=== PATIENT | female | born 1990 | race American Indian/Alaskan Native ===

== ENCOUNTER 2017-02-28 05:56 | Day surgery (SDC) | payer MEDICAID ==
[2017-02-28 06:14] VITALS: BMI 37.0
[2017-02-28 06:37] LABS: BASO % 0.2 % (0.0-2.0); EOS # 0.1 K/uL (0.0-0.7); EOS % 1.3 % (0.0-4.0); HEMATOCRIT 34.3 % (34.0-47.0); LYMPH # 2.1 K/uL (1.0-4.3); LYMPH % 32.9 % (20.0-40.0); MEAN CELL VOLUME 86.9 fL (81.0-99.0); MEAN CORPUSCULAR HEMOGLOBIN 30.2 pg (27.0-31.0); MEAN CORPUSCULAR HGB CONC 34.7 g/dL (33.0-37.0); MEAN PLATELET VOLUME 9.7 fL (7.2-11.7); MONO # 0.7 K/uL (0.0-0.8); MONO % 10.6 % (0.0-10.0); RED CELL DISTRIBUTION WIDTH 14.6 % (11.5-14.5); WHITE BLOOD COUNT 6.5 K/uL (4.8-10.8)
--- NOTE | 2017-02-28 07:47 | CP.SDSHP ---
Same Day Surgery H & P - History Proposed Procedure: [employer] Cervical Cerclage Pre-Op Diagnosis: 26yo with Previous deliveries X4, Cervical insufficiency - Previous Medical/Surgical History Previous Surgical History: Tooth Extraction - Allergies Allergies: Allergies No Known Allergies Allergy (Verified 02/28/17 06:14) - Current Medications Current Medications: Prnatal vitamins - Physical Exam General Appearance: Well Vital Signs: Vital Signs 02/28/17 07:07 Temperature 97.6 F Pulse Rate 85 Respiratory 18 Rate Blood Pressure 126/77 O2 Sat by Pulse 98 Oximetry Mental Status: Alert & Oriented x3 Neuro: WNL Heart: WNL Lungs: WNL GI: WNL - {Optional Preform as Required} Breast: WNL Abdomen: WNL 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 Evaluated Today:Candidate for Anesthesia & Procedure: Yes - Date & Time Date: 02/28/17 Time: 07:50 Short Stay Discharge - Short Stay Discharge Admitting Diagnosis/Reason for Visit: Disposition: HOME/ ROUTINE
[2017-02-28] MEDS ORDERED: Lactated Ringer's 1,000 ML IV ONE (08:09)
[2017-02-28 09:34] VITALS: O2SAT 100
--- NOTE | 2017-02-28 09:39 | PCM.SURG1 ---
Surgeon's Initial Post Op Note - Surgeon's Notes Surgeon: Dr Mayo [employer] Officer: Amalia Mann ( Family Practice Resident ) Type of Anesthesia: Spinal Anesthesia Administered By: JUNE Lara Supervised by Dr Miller Pre-Operative Diagnosis: IUP at 16wks with Previous Deliveries X4. Operative Findings: 16wks uterus. Cervical Length abour 3.0cm. Mcdonalds cerclage performed with #2 Nylon suture. Knot placed at 12 oclock. IVF intake- 500mls. EBL- 10mls. Urine output- 40mls Post-Operative Diagnosis: Same as preop diagnosis Operation Performed: [employer] Cervical Cerclage using # 2 Nylon suture. Specimen/Specimens Removed: None Estimated Blood Loss: EBL {In ML}: 10 Post-Op Condition: Good Date of Surgery/Procedure: 02/28/17 Time of Surgery/Procedure: 08:45
[2017-02-28 14:58] VITALS: BP 122/66; PULSE 89; RESP 20; TEMP 97.9
--- NOTE | 2017-03-01 12:06 | OP ---
PROCEDURE DATE: 02/28/2017 PREOPERATIVE DIAGNOSES: Intrauterine at 16 weeks with previous deliveries x4. POSTOPERATIVE DIAGNOSES: Intrauterine at 16 weeks with previous deliveries x4. PROCEDURE DONE: Rodriguez cervical cerclage using #2 nylon suture, performed on 02/28/2017. SURGEON: Griffin Mayo MD PHOTO CARTOGRAPHER: Betsy Mann, family practice resident. TYPE OF ANESTHESIA: Spinal. ANESTHESIA ADMINISTERED BY: Ashlee WATKINS, supervised by Dr. Miller. FINDINGS: A 16-week size uterus, cervical length was about 3 cm. Rodriguez cerclage performed with #2 nylon suture and knot placed at 12 o' clock. INTRAVENOUS FLUID INTAKE: 500 mL. ESTIMATED BLOOD LOSS: 10 mL. URINE OUTPUT: 40 mL of clear urine. COMPLICATIONS: There were no complications. DESCRIPTION OF PROCEDURE: After obtaining informed consent, the patient was sent to the OR with IV running. The patient was placed in a supine position in the OR table and after adequate general anesthesia, the patient was replaced in a dorsal lithotomy position. The patient was then prepped and draped in the usual sterile fashion. A urinary bladder was drained with a straight cath with output of about 40 mL urine. A weighted speculum was placed on the posterior vaginal wall and anterior wall was elevated with an L-shaped retractor. Both anterior and the posterior lips of the cervix were held with a sponge forceps. Using a #2 nylon suture, four bites of the suture was taken along the cervicovaginal junction around the cervix. The knot was placed at 12 o' clock and the suture cut after several knots at 12 o' clock. Once the procedure has been completed, all the instrument were taken off from the vagina. The patient was replaced in a supine position and was sent to the recovery room awake and in stable condition. All counts of the instrument and gauze used were correct x3. Griffin Mayo MD [facility]
== END 2017-02-28 14:45 | disposition home or self-care (01) ==
LOC: C.SDS 05:56
PROVIDERS: ATTEND Obstetrics & Gynecology
DX: O09.219 Supervision of pregnancy with history of pre-term labor, unspecified trimester (principal)
CPT/HCPCS: 36415; 59320; 85025; J7120

== ENCOUNTER 2017-03-05 00:15 | Emergency (ER) | payer SELFPAY ==
[2017-03-05 00:15] VITALS: BMI 37.0
--- NOTE | 2017-03-05 01:50 | C.PDOC ---
History Of Present Illness 26 year old female 17 weeks presents to the ED after tripping on stairs , twisting her left ankle and lower back. 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 Denies extremity weakness, abdominal injury, or vaginal bleeding. Time Seen by Provider: 03/05/17 00:52 Chief Complaint (Nursing): Lower Extremity Problem/Injury History Per: Patient History/Exam Limitations: no limitations Onset/Duration Of Symptoms: Hrs Current Symptoms Are (Timing): Still Present Recent travel outside of the [place]: No - Ankle/Foot Description Of Injury: Twisted Past Medical History Reviewed: Historical Data, Nursing Documentation, Vital Signs Vital Signs: Last Vital Signs Temp 98.2 F 03/05/17 02:49 Pulse 85 03/05/17 02:49 Resp 18 03/05/17 02:49 BP 140/78 03/05/17 02:49 Pulse Ox 100 03/05/17 03:42 - Medical History PMH: Asthma Surgical History: No Surg Hx Family History: States: Unknown Family Hx - Social History Hx Alcohol Use: No Hx Substance Use: No Review Of Systems Musculoskeletal: Positive for: Foot Pain Neurological: Negative for: Weakness, Numbness Physical Exam - Physical Exam Appears: Non-toxic, No Acute Distress Skin: Normal Color, Warm, Dry Head: Atraumatic, Normacephalic Eye(s): bilateral: Normal Inspection, PERRL Chest: No Tenderness Cardiovascular: Rhythm Regular Respiratory: Normal Breath Sounds Gastrointestinal/Abdominal: Soft, No Tenderness, Other (gravid) Back: Normal Inspection, No CVA Tenderness, No Paraspinal Tenderness, Straight Leg Raising Pelvic: No Normal External Exam Extremity: Normal ROM, Tenderness (left lateral malleolus), No Deformity, Swelling (left lateral malleolus), No Other (Erythema, ecchymosis) Pulses: Left Dorsalis Pedis: Normal, Right Dorsalis Pedis: Normal Neurological/Psych: Oriented x3, Normal Speech, Normal Cognition, Normal Motor, Normal Sensation ED Course And Treatment O2 Sat by Pulse Oximetry: 100 (Room air) Pulse Ox Interpretation: Normal - Other Rad Left ankle x-ray X-Ray: Interpreted by Me, Viewed By Me Interpretation: Avulsion fracture of Lt medial malleolus, Mod soft tissue swelling to lateral malleolus Progress Note: Left ankle X-rays were done. Pt placed in post splint by CP, and instructed in crutch walking. Pt will use crutches as support until follow up. Pt with FHR 129. Orthopedic Time Out: Side verified, Site verified Procedure: Splint Type: Short, Posterior Location: Left, Leg Consent obtained: Verbal Performed by: Mid-level Provider (by CP and checked by me) Diagnosis: Fracture (avulsion. Pt tolerates well, ambulatory with crutches. ) Disposition Counseled Patient/Family Regarding: Diagnosis, Need For Followup, Rx Given - Disposition Referrals: Nestor Brown III, MD [Staff Provider] - Disposition: HOME/ ROUTINE Disposition Time: 01:47 Condition: STABLE Additional Instructions: PLEASE ELEVATE LEG APPLY ICE TO AREA TYLENOL FOR PAIN RETURN TO ER IF WORSE Instructions: Ankle Fracture (ED) Forms: [employer] (Irish) - Clinical Impression Clinical Impression: Avulsion fracture of left ankle - Scribe Statement The provider has reviewed the documentation as recorded by the Scribe Jcarlos Atnoine All medical record entries made by the Scribe were at my direction and personally dictated by me. I have reviewed the chart and agree that the record accurately reflects my personal performance of the history, physical exam, medical decision making, and the department course for this patient. I have also personally directed, reviewed, and agree with the discharge instructions and disposition.
[2017-03-05 02:51] VITALS: BP 140/78; PULSE 85; RESP 18; TEMP 98.2
[2017-03-05 03:19] VITALS: O2SAT 100
--- NOTE | 2017-03-05 12:48 | RAD ---
PROCEDURE: Left Ankle Radiographs. HISTORY: pain, twisting injury COMPARISON: None FINDINGS: BONES: Avulsion fracture distal tibia. JOINTS: Normal. No osteoarthritis. Ankle mortise maintained. Talar dome intact SOFT TISSUES: Soft tissue swelling primarily affecting the lateral aspect of the ankle without distal fibular fracture. OTHER FINDINGS: None. IMPRESSION: Avulsion fracture distal tibia. Soft tissue swelling attests to the acuity of the fracture. Concordant results with the preliminary interpretation rendered by the emergency department physician procedure.
== END 2017-03-05 02:51 | disposition home or self-care (01) ==
LOC: C.ER 00:15
DX: S82.52XA Displaced fracture of medial malleolus of left tibia, initial encounter for closed fracture (principal); W18.40XA Slipping, tripping and stumbling without falling, unspecified, initial encounter

== ENCOUNTER 2017-06-15 18:01 | Emergency (ER) | payer MEDICAID ==
[2017-06-15 18:20] VITALS: BMI 36.2
[2017-06-15 19:13] LABS: SQUAMOUS EPITHIAL 10 /hpf (0-5); URINE BACTERIA RARE (<OCC); URINE BILIRUBIN NEGATIVE (NEGATIVE); URINE BLOOD NEGATIVE (NEGATIVE); URINE CLARITY Hazy (Clear); URINE COLOR Yellow (YELLOW); URINE GLUCOSE (UA) NORMAL (Normal); URINE LEUKOCYTE ESTERASE TRACE Leu/uL (Negative); URINE NITRATE NEGATIVE (NEGATIVE); URINE PROTEIN 1+ mg/dL (NEGATIVE)
--- NOTE | 2017-06-15 20:31 | US ---
EXAM: US Biophysical Profile Without Non-Stress Testing EXAM DATE/TIME: Exam ordered 06/15/2017 6:20 PM CLINICAL HISTORY: 26 years old, female; Signs and symptoms; Other: Decrease fm; ; Additional info: Decreased fm x 3 days TECHNIQUE: Real-time ultrasound of the maternal pelvis for biophysical profile evaluation with image documentation. COMPARISON: No relevant prior studies available. FINDINGS: Biometry BPD = [7.97cm]; Estimated Menstrual Age = [32 w0d]; Range = [+/- 49C4Z-66P9E] HC = [29.21 cm]; Estimated Menstrual Age = [32 w1d]; Range = [+/- 41J3Z-21W5P] AC = [26.91 cm]; Estimated Menstrual Age = [31w 0d]; Range = [+/- 36Q2V-80D5Z] FL = [6.17 cm]; Estimated Menstrual Age = [32 w 0 d]; Range = [+/- 37N5U-64O1O] HC/AC Ratio = [1.08] normal 0.96-1.14 EFW = RIGOBERTO= 16.27 (7.79-26.64 and ( Placenta: Anterior and free of the cervical os HR =[145 bpm] Cervix: Closed 3. very cm in length Presentation: Vertex Survey Lateral ventricles [Normal] Posterior Fossa [Normal] Spine [Normal] Heart [Normal] Stomach [Normal] Kidneys [Normal] Bladder [Normal] 4 extremities [Normal] Three-vessel cord: Normal breathing movements: Present. Score 2/2. Gross body movements: Present. Score 2/2. tone: Present. Score 2/2. Qualitative amniotic fluid volume: Within normal limits. Score 2/2. Placenta: Anterior and free of the cervical os No abruption. IMPRESSION: 1. Single live intrauterine with an estimated menstrual age of 31 weeks and 6 days plus or -2 weeks and 2 days. Expected date of delivery 08/11/2017. 2. Normal biophysical profile
--- NOTE | 2017-06-15 20:48 | OBHP ---
Datetime: 06/15/2017 18:28 IP Adm Impression: , intrauterine IP Admit Plan: Discharge home Admit Comment, IP Provider: Patient is a 26 year old at 31w4d MIAN 08/13/17 by 9w3d tl martínez nts to L+D from the office for decreased movement. Patient stated that decreased FM started 3 d ays ago. She felt the baby move last night and also felt the baby move upon arrival. Also states havi ng lower abdominal cramping that started 3 days ago as well. Denies recent intercourse, urinary sympt oms. Endorses +FM, denies CTX, VB, LOF. Issues: History of 4 deliveries- s/p cerclage placement this , receives weekly Francheska inj ections Rh negative - s/p Rhogram OB Hx: 1. 2006 at 33w5d, male , 4lbs 11oz, no complications 2. 2007 at 35w0d, female infant, 5lbs 15oz, no complications 3. 2011 at 33w4d, female infant, 5lbs 11oz, no complications 4. 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 - //17 [facility]ad - 8/regular/5days Hx of Chlamydia at age 16 Denies Hx of fibroids, ovarian cysts, abnormal pap smears Allerges: NKDA Medications: PNV, Vitamin D, Iron, Albuterol Medical Hx: Asthma, Vitamin D deficiency Surgical Hx: Cerclage placement Social Hx: Denies alcohol, tobacco, drug use; not employed, lives with children and FOB Family Hx: Mom age 44- healthy, Father age 41- healthy, Maternal Grandmother- brain aneurysm, Magallanes rnal Grandmother- breast cancer PE: See above A/P: 26 year old at 31w4d presents with decreased FM and lower abdominal cramping -Stable, afebrile -NST and BPP -Urinalysis -Plan discussed with attending Zelda Salcido DO PGY-1 OB Addendum: UA-negative, NST reactive, Category I tracing. Preliminary report for BPP 01/03. Will d ischarge patient home with labor precautions. Patient to follow up with OBGYN (Dr Méndez) a s scheduled. Plan discussed with attending. Zelda Salcido DO, PGY-1 Attending Note: patient seen and evaluated by me with the Resident. I agree with the above. FHR - Baseline A Provider: 145 Contraction Comments Provider: none Comments, ACOG Physical Exam: VSS Gen: AAOx3 Abd: Soft, gravid Ext: No clubbing, cyanosis, edema EFM: 145, moderate variability, +accels, -decels TOCO: No contractions IP Hx Assessment: The History has been Reviewed and is Current EGA AdmitDate IP: 31.4 Vital Signs Provider: Reviewed; Within Normal Limits IP Chief Complaint: Decreased movement NICHD Variability Prov Fetus A: Moderate 6-25bpm NICHD Accel Fetus A IP Provider: 15X15 FHR Category Provider Fetus A: Category I NICHD Decel Fetus A IP Provider: None
[2017-06-16 00:51] VITALS: BP 114/48; PULSE 82; RESP 18; TEMP 98; O2SAT 93
== END 2017-06-15 20:10 | disposition home or self-care (01) ==
LOC: C.EROB 18:01
DX: O36.8130 Decreased fetal movements, third trimester, not applicable or unspecified (principal); Z3A.31 31 weeks gestation of pregnancy

== ENCOUNTER 2017-07-13 16:16 | Emergency (ER) | payer MEDICAID ==
[2017-07-13 16:44] VITALS: BMI 36.6
[2017-07-13] MEDS ORDERED: Betamethasone Soluspan 30 mg/5mL Inj Susp IM ONE (16:45)
[2017-07-13 22:45] VITALS: BP 134/77; PULSE 88; RESP 18; TEMP 98.6; O2SAT 77
--- NOTE | 2017-07-14 08:16 | OBHP ---
Datetime: 07/13/2017 16:55 IP Adm Impression: , intrauterine ; No Active Labor IP Admit Plan: Observation/Evaluation; Discharge home Admit Comment, IP Provider: 26 y.o. , LMP unsure, MIAN here for betamethasone 1 of 2 [facility] deliveres x 4. (+) AFM; denies LOF, VB. Ctx. care: Dr. 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 No h/o abnormal Pap; (+) HPV. Denies other STIs, abnormal Pap, fibroids or ovarian cysts PMH: h/o asthma, age 9; no knowledge of intubation, steroid. Vit D deficiency; anemia. PSH: Cerclage placement, 2016 Meds: PNV, Vit D, iron - all daily NKDA Soc Hx: denies tobacco, illicit drug or EtOH use. With FOB x years Fam Hx: Mother alive 44 y.o - HTN; Father alive 40 y.o. - no med issues. P.E.: as above. Mildly obese in NAD. Awake, alert, oriented to time, person and place. Pleasant an d cooperative; accompanied by FOB. Assessment: 26 y.o. P0404, 35w 2d, h/o delivery x 4, cerclage in situ, here for Betametha sone course, as prescribed by Ob provider, Dr. Méndez. Was given prescription 06/29/17; states was to ld to come in at 35 weeks, and not at the time prescription was originally written. Category 1 kristi ng; no contractions. Patient instructed - she will receive 1st dose of celestone now, and to return in 24 hours for the second dose. Patient expressed an understanding and agrees. Clinically stable. Plan: 1) Celestone 12 mg IM x 1 now 2) Return in 24 hours for second dose 3) Can discharge home 4) Reviewed S/S PTL 5) Keep all scheduled appointments Pelvic Type - PN: Not Done Extremities - PN: Normal Abdomen - PN: Normal Back - PN: Normal Breast - PN: Not Done Lungs - PN: Normal Heart - PN: Normal Thyroid - PN: Not Done Neurologic - PN: Normal HEENT - PN: Normal General - PN: Normal Presentation-Admit: Vertex FHR - Baseline A Provider: 160 Contraction Comments Provider: none Comments, ACOG Physical Exam: Abdomen: Obese. Gravid. Soft. Non tender in all quadrants All other systems reviewed and are negative Gestation - Est Wks by US: 35w 3d EGA AdmitDate IP: 35.3 Vital Signs Provider: Reviewed; Within Normal Limits IP Chief Complaint: Other NICHD Variability Prov Fetus A: Moderate 6-25bpm NICHD Accel Fetus A IP Provider: 15X15 FHR Category Provider Fetus A: Category I NICHD Decel Fetus A IP Provider: None Dilatation, Provider: deferred Genitourinary Exam: Not Done DTRs - PN: Not Done
== END 2017-07-13 17:18 | disposition home or self-care (01) ==
LOC: C.EROB 16:16
DX: O26.893 Other specified pregnancy related conditions, third trimester (principal); Z3A.35 35 weeks gestation of pregnancy
CPT/HCPCS: 96372; 99283; J0702

== ENCOUNTER 2017-07-14 16:48 | Emergency (ER) | payer MEDICAID ==
[2017-07-13 16:44] VITALS: BMI 36.6
[2017-07-14] MEDS ORDERED: Betamethasone Soluspan 30 mg/5mL Inj Susp IM ONE (17:01)
--- NOTE | 2017-07-14 17:38 | OBHP ---
Datetime: 07/14/2017 17:05 IP Adm Impression: , intrauterine IP Chief Complaint Other: Celestone IP Admit Plan: Discharge home Admit Comment, IP Provider: Patient is a 26 year old at 35w4d MIAN 08/14/17 by US presents to L+D for second dose of celestone. Patient is doing well, offers no complaints at this time. Endorses +FM, denies CTX, VB, LOF. Issues: Hx of deliveries- s/p cerclage placement at 16 weeks gestation Anemia in OB Hx: 1. 2006 at 33 weeks, male , no complications 2. 2007 at 35 weeks, female , no complications 3. 2011 at 34 weeks, female infant, no complications 4. 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: LMP - 11/07/16 Triad - 9 x monthly x 5 days Denies fibroids, ovarian cysts, STIs Denies abnormal pap smears, Last pap was 6 months ago Allergies: NKDA Medications: PNV, Albuterol Medical Hx: Asthma, Vitamin D Deficiency Surgical Hx: Cerclage placement at 16 weeks gestation Social Hx: Denies alcohol, tobacco, drug use Family Hx: Mother - HTN; Father - healthy; Paternal grandmother - cervical cancer PE: See above A/P: 26 year old at 35w4d presents for second dose of celestone -Stable, afebrile -Category I tracing -Celestone 12mg IM to be given -Will d/c patient home with labor precautions, f/u with Dr Sanchez as scheduled -Plan discussed with Dr Mike Salcido DO PGY-1 FHR - Baseline A Provider: 150 Contraction Comments Provider: none Comments, ACOG Physical Exam: VSS Gen: AAOx3 Abd: Soft, gravid Ext: No clubbing, cyanosis, edema SVE: deferred EGA AdmitDate IP: 35.4 Vital Signs Provider: Reviewed; Within Normal Limits IP Chief Complaint: Other NICHD Variability Prov Fetus A: Moderate 6-25bpm NICHD Accel Fetus A IP Provider: 15X15 FHR Category Provider Fetus A: Category I NICHD Decel Fetus A IP Provider: None
[2017-07-14 22:32] VITALS: PULSE 87; O2SAT 99
== END 2017-07-14 18:19 | disposition home or self-care (01) ==
LOC: C.EROB 16:48
DX: O26.893 Other specified pregnancy related conditions, third trimester (principal); Z3A.35 35 weeks gestation of pregnancy
CPT/HCPCS: 96372; 99283; J0702

== ENCOUNTER 2017-07-24 07:39 | Emergency (ER) | payer MEDICAID ==
--- NOTE | 2017-07-24 09:48 | OBHP ---
Datetime: 07/24/2017 07:37 IP Adm Impression: , intrauterine IP Chief Complaint Other: cerclage removal IP Admit Plan: Admit to unit Admit Comment, IP Provider: Patient is a 26 year old at 37w0d MIAN 08/14/17 by US presents to L+D for cerlcage removal. Patient is doing well, offers no complaints. Endorses +FM, denies CTX, VB, LOF. Issues: Hx of deliveries- s/p cerclage placement at 16 weeks gestation, s/p celestone x 2 Anemia in OB Hx: 1. 2006 at 33 weeks, male , no complications 2. 2007 at 35 weeks, female , no complications 3. 2011 at 34 weeks, female infant, no complications 4. 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 - 11/07/16 Triad - 9 x monthly x 5 days Denies fibroids, ovarian cysts, STIs Denies abnormal pap smears, Last pap was 6 months ago Allergies: NKDA Medications: PNV, Albuterol prn 1-2xper wk; vit D; Feso4 Medical Hx: Asthma, Vitamin D Deficiency Surgical Hx: Cerclage placement at 16 weeks gestation Social Hx: Denies alcohol, tobacco, drug use Family Hx: Mother - HTN; Father - healthy; Paternal grandmother - cervical cancer PE: See above A/P: 26 year old at 37w0d presents for cerclage removal -Stable, afebrile -CEFM and TOCO -Plan for cerclage removal today -Discussed with Dr Priscilla Salcido DO PGY-1 ob attending addendum: as above s: no c/o. denies ctxs, srom, bleeding or decreased fm. some cramping shx: denies etoh, tobacco or ilicit drug use P: under aseptic conditions proline suture was rmoved just lateral to knot @ 1:00 Bleeding was controlled with pressure and application of monsels. u/a. for d/c home if stable and no onset of labor Pelvic Type - PN: Adequate Extremities - PN: Normal Abdomen - PN: Normal Lungs - PN: Normal Heart - PN: Normal HEENT - PN: Normal General - PN: Normal Presentation-Admit: Vertex FHR - Baseline A Provider: 145 Membranes, Provider: Intact Comments, ACOG Physical Exam: VSS Gen: AAOx3 Abd: Soft, gravid Ext: No clubbing, cyanosis, edema IP Hx Assessment: The History has been Reviewed and is Current EGA AdmitDate IP: 37.0 Vital Signs Provider: Reviewed; Within Normal Limits IP Chief Complaint: Other NICHD Variability Prov Fetus A: Moderate 6-25bpm NICHD Accel Fetus A IP Provider: 15X15 FHR Category Provider Fetus A: Category I NICHD Decel Fetus A IP Provider: None Dilatation, Provider: 3 Effacement, Provider: 0 Station, Provider: -3
[2017-07-24 11:22] LABS: SQUAMOUS EPITHIAL < 1 /hpf (0-5); URINE BACTERIA RARE (<OCC); URINE BILIRUBIN NEGATIVE (NEGATIVE); URINE BLOOD 2+ (NEGATIVE); URINE CLARITY Hazy (Clear); URINE COLOR Yellow (YELLOW); URINE GLUCOSE (UA) NORMAL (Normal); URINE LEUKOCYTE ESTERASE NEG Leu/uL (Negative); URINE NITRATE NEGATIVE (NEGATIVE); URINE PROTEIN NEGATIVE (NEGATIVE); URINE UROBILINOGEN NORMAL mg/dL (0.2-1.0)
== END 2017-07-24 11:30 | disposition home or self-care (01) ==
LOC: C.EROB 07:39
DX: O34.33 Maternal care for cervical incompetence, third trimester (principal); Z3A.37 37 weeks gestation of pregnancy

== ENCOUNTER 2017-07-26 22:51 | Inpatient (IN) | payer MEDICAID ==
--- NOTE | 2017-07-26 23:37 | OBDCSUM ---
Datetime: 07/26/2017 23:35 Discharged to, Provider: Home Follow up at, Provider: 1day Follow up in weeks, Provider: dr miranda Disch Activity Restrictions: No sexual activity; Nothing in vagina - [place], tampons, douche Discharge Comment, Provider: dc home flagyl 500 mg bid labor given po hy f/u in pmd in 1 day Discharge Diagnosis Prov Other: 37weeks r/o rom nst
--- NOTE | 2017-07-26 23:37 | OBHP ---
Datetime: 07/26/2017 23:30 IP Adm Impression: Term, intrauterine IP Admit Plan: Discharge home Admit Comment, IP Provider: at 37.2weeks josue with c/o mucus plug coming from vagina and some di scharge, no vb, +fm, no pain obhx 4 x pmh den med pnv psh asthma all nkda soch de sse neg pooling, neg nitrazine ve /-3 a/p at 37+weeks r/o rom/vaginitis dc home flagyl 500 mg bid labor given po hy f/u in pmd in 1 day Pelvic Type - PN: Adequate Extremities - PN: Normal Abdomen - PN: Normal Back - PN: Normal Breast - PN: Normal Lungs - PN: Normal Heart - PN: Normal Thyroid - PN: Normal Neurologic - PN: Normal HEENT - PN: Normal General - PN: Normal FHR - Baseline A Provider: 140 Membranes, Provider: Intact Contraction Comments Provider: irrg Comments, ACOG Physical Exam: gravid,non tender ext no edema,no calf ten sse neg nitazine,neg pooling EGA AdmitDate IP: 37.3 Vital Signs Provider: Reviewed; Within Normal Limits IP Chief Complaint: Suspected ruptured membranes NICHD Variability Prov Fetus A: Moderate 6-25bpm NICHD Accel Fetus A IP Provider: 15X15 FHR Category Provider Fetus A: Category I Dilatation, Provider: ft Effacement, Provider: 50 Station, Provider: -3 Genitourinary Exam: Normal DTRs - PN: Normal
[2017-07-26] MEDS ORDERED: Penicillin G 5 Million Unit Vial IVPB ONE (23:52)
[2017-07-26 23:53] VITALS: BMI 36.7
--- NOTE | 2017-07-26 23:54 | OBADHP ---
Datetime: 07/26/2017 23:30 Admit Comment, IP Provider: at 37.2weeks josue with c/o mucus plug coming from vagina and some di scharge, no vb, +fm, no pain obhx 4 x pmh den med pnv psh asthma all nkda soch de sse neg pooling, neg nitrazine ve 50/-3 a/p at 37+weeks r/o rom/vaginitis dc home flagyl 500 mg bid labor given po hy f/u in pmd in 1 day before pateint was about to leave pt started ctxs 1-2 min fhr 160 mods janell plan admit to l_d npo/ivf labs pain management rios anticipate Pelvic Type - PN: Adequate Extremities - PN: Normal Abdomen - PN: Normal Back - PN: Normal Breast - PN: Normal Lungs - PN: Normal Heart - PN: Normal Thyroid - PN: Normal Neurologic - PN: Normal HEENT - PN: Normal General - PN: Normal FHR - Baseline A Provider: 140 Membranes, Provider: Intact Contraction Comments Provider: irrg Comments, ACOG Physical Exam: gravid,non tender ext no edema,no calf ten sse neg nitazine,neg pooling Vital Signs Provider: Reviewed; Within Normal Limits IP Chief Complaint: Suspected ruptured membranes NICHD Variability Prov Fetus A: Moderate 6-25bpm NICHD Accel Fetus A IP Provider: 15X15 FHR Category Provider Fetus A: Category I Dilatation, Provider: ft Effacement, Provider: 50 Station, Provider: -3 Genitourinary Exam: Normal DTRs - PN: Normal EGA AdmitDate IP: 37.3 IP Adm Impression: Term, intrauterine ; No Active Labor IP Admit Plan: Admit to unit; Initiate labor protocol Datetime: 07/24/2017 07:37 IP Chief Complaint Other: cerclage removal Presentation-Admit: Vertex IP Hx Assessment: The History has been Reviewed and is Current NICHD Decel Fetus A IP Provider: None Datetime: 07/13/2017 16:55 Gestation - Est Wks by US: 35w 3d
[2017-07-27] MEDS: Lactated Ringer's 1,000 ML IV SCH ×3 (00:06→15:05)
[2017-07-27] MEDS ORDERED: Nalbuphine 20 mg/ml Inj (1 ml) IVP PRN (00:15)
[2017-07-27 01:28] LABS: BASO % 0.2 % (0.0-2.0); EOS # 0.1 K/uL (0.0-0.7); EOS % 0.8 % (0.0-4.0); HEMOGLOBIN 11.2 g/dL (11.0-16.0); LYMPH # 1.9 K/uL (1.0-4.3); LYMPH % 28.2 % (20.0-40.0); MEAN CELL VOLUME 84.8 fL (81.0-99.0); MEAN CORPUSCULAR HEMOGLOBIN 28.6 pg (27.0-31.0); MEAN CORPUSCULAR HGB CONC 33.7 g/dL (33.0-37.0); MEAN PLATELET VOLUME 10.8 fL (7.2-11.7); MONO % 14.4 % (0.0-10.0); NEUT # 3.9 K/uL (1.8-7.0); NEUT % 56.4 % (50.0-75.0); NRBC % 0.1 % (0.0-2.0); RBC 3.9 Mil/uL (3.80-5.20); RED CELL DISTRIBUTION WIDTH 14.8 % (11.5-14.5); WHITE BLOOD COUNT 6.9 K/uL (4.8-10.8)
[2017-07-27 01:48] LABS: PROTHROMBIN TIME 10.9 SECONDS (9.7-12.2)
[2017-07-27 01:55] LABS: SQUAMOUS EPITHIAL 1 /hpf (0-5); URINE BACTERIA OCC (<OCC); URINE BILIRUBIN NEGATIVE (NEGATIVE); URINE CLARITY Clear (Clear); URINE COLOR Straw (YELLOW); URINE GLUCOSE (UA) NORMAL (Normal); URINE LEUKOCYTE ESTERASE NEG Leu/uL (Negative); URINE NITRATE NEGATIVE (NEGATIVE); URINE PROTEIN NEGATIVE (NEGATIVE); URINE UROBILINOGEN NORMAL mg/dL (0.2-1.0)
[2017-07-27 01:56] LABS: URINE BLOOD NEGATIVE (NEGATIVE)
[2017-07-27 02:00] LABS: ALBUMIN 3.5 g/dL (3.5-5.0); ALT/SGPT 19 U/L (9-52); AST/SGOT 22 U/L (14-36); BILIRUBIN,DIRECT 0.6 mg/dL (0.0-0.4); BLOOD UREA NITROGEN 4 mg/dL (7-17); CALCIUM 9.1 mg/dl (8.6-10.4); GFR AFRICAN-AMERICAN > 60; GFR NON-AFRICAN AMERICAN > 60
[2017-07-27 02:39] LABS: HEPATITIS B SURFACE AG Negative (NEGATIVE)
[2017-07-27] MEDS ORDERED: Bupivacaine HCl 0.25% PF (10 ml) Inj ONE (07:53)
[2017-07-27] MEDS ORDERED: Bupivacaine HCl/FentaNYL Cit 100 ML EPI ONE ×2 (07:54→16:50)
--- NOTE | 2017-07-27 11:17 | OBHP ---
Datetime: 07/26/2017 23:30 IP Admit Plan: Admit to unit; Initiate labor protocol Admit Comment, IP Provider: at 37.2weeks josue with c/o mucus plug coming from vagina and some di scharge, no vb, +fm, no pain obhx 4 x pmh den med pnv psh asthma all nkda soch de sse neg pooling, neg nitrazine ve /-3 a/p at 37+weeks r/o rom/vaginitis dc home flagyl 500 mg bid labor given po hy f/u in pmd in 1 day before pateint was about to leave pt started ctxs 1-2 min fhr 160 mods janell plan admit to l_d npo/ivf labs pain management rios anticipate EGA AdmitDate IP: 37.3
--- NOTE | 2017-07-27 15:21 | OBPN ---
Datetime: 07/27/2017 15:11 IP Progress Note Comment: delayed entry: pt seen and examiend htis mornign at 7am, 4cm pt c/o of allen was admitted E:M Cat I TOOC: irreuglr Pt reevluated 5cm s/p epdural pt seen and examiend at 15:00 c/o pressure, dnies lof, vb +FM VE; 6cm, AROM, clear EFM: Cat I TOOC ;q 5 min A/P P4 @ 37.3 wks GA s/p cerclage removal in active labor -cont current mangnet Datetime: 07/26/2017 23:30 Membranes, Provider: Intact Contraction Comments Provider: irrg FHR - Baseline A Provider: 140 Vital Signs Provider: Reviewed; Within Normal Limits NICHD Accel Fetus A IP Provider: [id number] FHR Category Provider Fetus A: Category I NICHD Variability Prov Fetus A: Moderate 6-25bpm Dilatation, Provider: ft Effacement, Provider: 50 Station, Provider: -3 Datetime: 07/24/2017 07:37 Presentation-Admit: Vertex NICHD Decel Fetus A IP Provider: None Datetime: 07/13/2017 16:55 Gestation - Est Wks by US: 35w 3d
[2017-07-27] MEDS ORDERED: Oxytocin 10 Units/ml Inj ONE (15:27)
[2017-07-27] MEDS ORDERED: Oxytocin 30 UNIT 30 UNITS/500 ML BAG IV SCH ×2 (16:30→20:00)
[2017-07-27] MEDS ORDERED: Oxytocin 30 UNIT 30 UNITS/500 ML BAG IV ONE (16:43)
[2017-07-27] MEDS ORDERED: Penicillin G Potassium 2.5 MU in Dextrose 5% In Water 50 ML IV SCH (17:45)
--- NOTE | 2017-07-27 19:54 | OBDS ---
MATERNAL INFORMATION Delivery Anesthesia: Epidural Provider Comments: pt was fully dilated and pushing, atrumatic, spontaneous delivery of head in OA p ositoin. Nuchal cord x 1 tight, loosened followed by atrumatic, , spontaneous delviery of anterior fo llowed by psotier shoulder followed by delivery of body. Both oral and nasal passages of the baby wer e bulb suctioned. umbilcal cord wsa clamped and cut. baby was handed to [facility] with rn as sistnace. Cord blood adn cord gases collected ans sent x 2. Spontaneous delivery of intact placenta w ith membranes. fundus firm, good hemostasisi. No complicatons live female infnat agpsr 9,9 weight of 6lb 8 ounces ebl 300ml LABOR SUMMARY EDC: 08/14/2017 00:00 No. Babies in Womb: 1 Attempted: No LABOR INFORMATION Onset of Labor: 07/26/2017 22:00 Group B Beta Strep: UNKNOWN Reason Steroids Not Administered: Not Applicable (Annotations: Data stored by [facility] on behalf of user) MEMBRANES Membranes Rupture Method: Artificial (Annotations: by dr zhao) Rupture of Membranes: 07/27/2017 15:03 Length of Rupture (hrs): 4.68 Amniotic Fluid Color: Clear Amniotic Fluid Amount: Scant Amniotic Fluid Odor: None VAGINAL DELIVERY Episiotomy: None Laceration Extension: N/A Laceration Type: None Laceration Repair: Not Applicable Laceration Repair Note: intact perineum Initial Vag Sponge Count: 10 Initial Vag Sharps Count: 0 BABY A INFORMATION Delivery Date/Time: 07/27/2017 19:44 Method of Delivery: Vaginal Born in Route : No : N/A Forceps: N/A Vacuum Extraction: N/A Shoulder Dystocia : No SHOULDER DYSTOCIA BABY A Infant Delivery Date/Time: 07/27/2017 19:44 PRESENTATION/POSITION BABY A Presentation: Cephalic Cephalic Presentation: Vertex Vertex Position: Left Occipital Anterior Breech Presentation: N/A SCORES BABY A Heart Rate 1 min: >100 bpm Resp Effort 1 min: Good Cry Reflex Irritability 1 min: Cough or Sneeze or Pulls Away Muscle Tone 1 min: Active Motion Color 1 min: Body Mcnary, Extremities Blue Resuscitation Effort 1 min: Tactile Stimulation SCORE 1 MIN: 9 Heart Rate 5 min: >100 bpm Resp Effort 5 min: Good Cry Reflex Irritability 5 min: Cough or Sneeze or Pulls Away Muscle Tone 5 min: Active Motion Color 5 min: Body Mcnary, Extremities Blue Resuscitation Effort 5 min: Tactile Stimulation SCORE 5 MIN: 9 INFORMATION BABY A Gestational Age at Delivery: 37.3 Gestational Status: Term Outcome : Liveborn Condition : Stable Sex: Female IDENTIFICATION/MEDS BABY A ID Band Number: [id number] Sensor Applied: Yes Sensor Number: [id number] Sensor Location : Cord Clamp WEIGHT/LENGTH BABY A Birthweight (gms): 2955 Infant Weight (lb): 6 Weight (oz): 8 Infant Length Inches: 18.00 Length cms: 45.7 CORD INFORMATION BABY A No. 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
[2017-07-27] MEDS ORDERED: Oxycodone/Acetaminophen 5/325 mg Tab PO PRN ×2 (19:58)
[2017-07-27] MEDS ORDERED: Benzocaine/Menthol 20%-0.5% Topical Spray (60 ml) TOP PRN (19:58)
[2017-07-28 08:14] LABS: BASO % 0.2 % (0.0-2.0); EOS % 0.6 % (0.0-4.0); LYMPH # 1.9 K/uL (1.0-4.3); LYMPH % 23.2 % (20.0-40.0); MEAN CELL VOLUME 84.6 fL (81.0-99.0); MEAN CORPUSCULAR HEMOGLOBIN 28.8 pg (27.0-31.0); MEAN CORPUSCULAR HGB CONC 34.1 g/dL (33.0-37.0); MEAN PLATELET VOLUME 10.4 fL (7.2-11.7); NEUT # 5.1 K/uL (1.8-7.0); RBC 3.14 Mil/uL (3.80-5.20); RED CELL DISTRIBUTION WIDTH 14.4 % (11.5-14.5); WHITE BLOOD COUNT 8.1 K/uL (4.8-10.8)
[2017-07-28] MEDS: Multiple Vitamins Tab PO SCH (09:37)
--- NOTE | 2017-07-28 19:11 | OBPPN ---
Datetime: 07/28/2017 07:36 PP Pain Prov: Within normal limits PP Nausea Prov: Denies PP Flatus Prov: Yes PP BM Prov: No PP Impression Prov: Normal progression PP Plan Prov: Continue present management PP Progress Note Prov: Patient seen and examined at bedside. Per nursing no acute events overnight. Patient is doing well, pain is controlled. Lochia is mild. Ambulating and tolerating diet. Passing fl atus, no BM. Urinating without difficulty. Bottle feeding. Denies headaches, dizziness, cp, palpitati ons, sob, urinary symptoms. VS: 139/77 95 98.7 Gen: AAOx3 Abd: Soft, fundus firm 1 fingerbreath below umbilicus Ext: No clubbing, cyanosis, edema; no calf tenderness Labs: 6.9>11.2/33.1<147 F/U am CBC A negative Rubella ? A/P: 26 year old at 37w3d s/p PPD#1 -Stable, afebrile -Pain control: motrin and tylenol prn -F/U am CBC -Rh negative: patient to receive rhogam -Encourage ambulation and hydration -Continue routine care -Anticipate D/C home tomorrow -Plan discussed with Dr Manuel Salcido DO PGY-1 Attending Note: patient seen and evaluated with Resident - I agree with the above. PPD#1 H/H: 9.0/ 26.5 - will start iron. All else as above. Anticipate discharge home 07/29/17 Vital Signs Provider PP: Reviewed
[2017-07-29 08:00] VITALS: BP 145/88; PULSE 82; RESP 18; TEMP 99.5; O2SAT 98
[2017-07-29] MEDS ORDERED: Influenza Vaccine 60 mcg/0.5 mL SYR (4YR UP) IM ONE (08:41)
[2017-07-29] MEDS: Multiple Vitamins Tab PO SCH (09:08)
--- NOTE | 2017-07-29 11:26 | OBDCSUM ---
Datetime: 07/29/2017 11:24 Discharged to, Provider: Home Follow up at, Provider: Dr. Méndez Disch Instr Activity: Normal activity; May be up to bathroom; May be up for meals; May Shower Discharge Instructions, Provider: Routine instructions given Discharge Diagnosis, Provider: Term Delivered Discharge Time: 07/29/2017 11:24 Follow up in weeks, Provider: 6 weeks Contraception discussed, Prov: Yes Disch Activity Restrictions: No exercising; No sexual activity; Nothing in vagina - [place], ramesh adri, douche Discharge Diagnosis Prov Other: Grand multiparity Rh negative Anemia Contraception counseling Contraception after Delivery: IUD Datetime: 07/29/2017 08:10 Discharged to, Provider: Home Follow up at, Provider: marissa Disch Instr Activity: Normal activity Disch Instr Diet: Regular Follow up in weeks, Provider: 6 weeks Disch Referrals: None Disch Activity Restrictions: No lifting; Minimize stair-climbing; No sexual activity; Nothing in vag [place] - [place], tampons, douche Datetime: 07/26/2017 23:35 Follow up at, Provider: marissa Disch Instr Activity: Normal activity Disch Instr Diet: Regular Follow up in weeks, Provider: 6 weeks Disch Referrals: None Disch Activity Restrictions: No lifting; Minimize stair-climbing; No sexual activity; Nothing in vag [place] - [place], tampons, douche
== END 2017-07-29 13:30 | disposition home or self-care (01) | DRG 372 ==
LOC: C.EROB 22:51 → C.4D 23:50 → C.4M 07-27 22:25
PROVIDERS: ADMIT Obstetrics & Gynecology; ATTEND Obstetrics & Gynecology
PROC: 10E0XZZ Delivery of Products of Conception, External Approach (ICD-10-PCS; principal; 2017-07-27)
PROC: 10907ZC Drainage of Amniotic Fluid, Therapeutic from Products of Conception, Via Natural or Artificial Opening (ICD-10-PCS; 2017-07-27)
PROC: 3E0234Z Introduction of Serum, Toxoid and Vaccine into Muscle, Percutaneous Approach (ICD-10-PCS; 2017-07-28)
DX: O34.33 Maternal care for cervical incompetence, third trimester (principal); D64.9 Anemia, unspecified; O99.02 Anemia complicating childbirth; O69.1XX0 Labor and delivery complicated by cord around neck, with compression, not applicable or unspecified; O99.52 Diseases of the respiratory system complicating childbirth; J45.909 Unspecified asthma, uncomplicated; O36.0930 Maternal care for other rhesus isoimmunization, third trimester, not applicable or unspecified; Z3A.37 37 weeks gestation of pregnancy; Z37.0 Single live birth